=== PATIENT | male | born 1955 | race Caucasian/White ===

== ENCOUNTER → 2020-10-10 | Outpatient (CLI) | payer BC, SELFPAY ==
[2020-10-10 17:02] VITALS: BMI 27.3
== END | disposition home or self-care (01) ==
PROVIDERS: Visit Provider Physician Assistant Surgical
DX: U07.1 COVID-19 (principal)
CPT/HCPCS: 87635; U0003

== ENCOUNTER 2023-08-25 05:33 | Day surgery (SDC) | payer MEDICARE, OTHER, SELFPAY ==
[2023-07-25 11:13] LABS: Magnesium 1.9 mg/dL (1.6-2.6)
[2023-07-25 11:14] LABS: Hemoglobin A1c 4.9 % (3.8-5.6)
[2023-08-25] VITALS (7 sets, daily range): BP systolic 104–152; BP diastolic 66–89; PULSE 55–86; RESP 14–16; TEMP 35.3–36.6; O2SAT 96–100; BMI 31.3
[2023-08-25] MEDS: Magnesium 2 GM for ERAS IV (06:18)
[2023-08-25] MEDS: Gabapentin 600 MG Tablet PO (06:19)
[2023-08-25] MEDS: Acetaminophen 500 MG Tablet 1000 MG PO ×2 (06:19→13:30)
[2023-08-25] MEDS: Lactated Ringers 1,000 ML 15 ML IV (06:19)
--- NOTE | 2023-08-25 07:30 | FEM._PTH ---
PATIENT: ERICA MARKS LOC: [facility] U#:[id number] AGE/SX: 67/M ROOM: RE08/25/[address]: Dr. Leopoldo Hernández DO : 1955 BED: DIS: 08/25/2023 SPEC #: [id number] RECD: 08/25/23 11:05 STATUS: JOHN INDU #: [id number] ISIDORO: 08/25/23 07:[address]: Leopoldo Hernández DEPT: SURGICAL PATHOLOGY RECD BY: Lakisha Cosme ENTERED: 08/25/23 12:07 SP TYPE: FEM HEAD OTHR DR: No Primary Care Phys Tissues: Hip, NOS Procedures: Decalcification bone/plaque Surgery Specimen Level IV HEADER OPERATION: ERAS, total hip replacement, posterior PRE-OP DIAGNOSIS: Unilateral primary osteoarthritis right hip TISSUE SUBMITTED: Right femoral head MICROSCOPIC DIAGNOSIS Right femoral head, total hip replacement/resection: Femoral head with degenerative osteoarthritic changes. A piece of fibroadipose and reactive synovial tissue. HEATHER:gabriela 08/28/2023 MICROSCOPIC DESCRIPTION Slides are reviewed. GROSS DESCRIPTION Received is one container labeled with the patient's name and designated right femoral head. The specimen consists of a child femoral head with portion of femoral neck. The femoral head measures 5.0 x 5.0 x 5.5 cm and the femoral neck measures 1.0 cm in length. Also present on the top of femoral head is a piece of soft tissue measuring 2.0 x 0.5 x 0.5 cm. The articular surface displays prominent osteophyte formation, eburnation and bone erosion. [employer] And [employer] Colerer sections are submitted in two cassettes as follows: 1 - soft tissue, entirely submitted, 2 - femoral head after decalcification. / HEATHER:gabriela 08/25/2023 :5 [facility]: [id number], [id number]
[2023-08-25] MEDS: TXA 1000mg in NS100 100ml (IVPB at Incision) 660 MG IV (07:40)
[2023-08-25] MEDS: TXA 1000mg in NS100 100ml (IVPB at Closure) 660 MG IV (08:50)
[2023-08-25 08:52] LABS: Bedside Glucose 98 mg/dL (74-106)
[2023-08-25] MEDS: JPS (Morphine 10mg/ml) OPERA.SITE (08:52)
--- NOTE | 2023-08-25 08:53 | RAD_ITS ---
STUDY: X-RAY - PELVIS AND RIGHT HIP REASON FOR EXAM: Male, 67 years old. post op -- in PACU TECHNIQUE: 2 views of the pelvis and hip. COMPARISON: None. FINDINGS: Satisfactory appearance of recently positioned right hip arthroplasty. No dislocation. Otherwise unremarkable visualized pelvis and left hip. Electronically Signed: Jimmie Bowman MD at 23:00 EDT , RAD/Hip Min 2 Views (Portable) IMPRESSION: undefined
--- NOTE | 2023-08-25 09:07 | OP.PCM_ITS ---
Report of Operation Date of Procedure: 08/25/23 Pre-Operative Diagnosis: OA right hip Post-Operative Diagnosis: same Surgery/Procedure Performed:: right THR Description of Surgical Findings:: Report of Operation Date of Procedure: 08/25/2023 Pre-Operative Diagnosis: OA [ right ] hip Post-Operative Diagnosis: same Surgery/Procedure Performed: [right ] THR measurement operator: Isma Silvestre PA-C Type of Anesthesia: general after attempted spinal Anesthesiologist: Bayron Seth M.D. Specimen's removed: bone Estimated Blood Loss (mL): 75 cc Implants: [place] Accolade 2 size 6 stem, +0 neck length. 52 MM hemispherical cup with MDM liner, stainless steel on polyethylene Surgical Indications: Patient has severe end-stage osteoarthritic changes in the [right ] hip. They have failed conservative measures including activity modification, anti- inflammatories, use of assistive devices. This to the point where the pain affects their ability to enjoy life and complete activities of daily living without discomfort. Patient has elected to undergo the above procedure Procedure Description: The patient was greeted in the preoperative area the [right ] hip was marked with surgical marker preoperative antibiotics administered. The patient was then taken to or suite in stable condition. Preoperative tranexamic acid was also utilized. Once the patient was placed in the supine position on the operating room table and once adequate anesthesia was obtained they were then placed in the lateral decubitus position with the surgical hip facing the field. All bony prominences were well-padded. A commercial hip position was utilized. The appropriate extremity was then prepped and draped in usual sterile fashion. Ioban was placed on the skin. Surgical timeout was performed and surgery was commenced. A standard posterior approach to the hip was then performed. Incision was planned and carried out with a #10 blade s calpel. Dissection was then carried length of the incision to the IT band which was split proximally and distally. A Charnley retractor was then placed for soft tissue retraction exposing the piri formis. A standard posterior capsulotomy was performed. Severe eburnation of bone was noted and periarticular osteophytes were identified consistent with severe end-stage osteoarthritis. A femoral neck osteotomy guide was used to karthik the proximal femur. A femoral osteotomy was then created approximately 1 fingerbreadth above the lesser trochanter. This was measured and placed on the back table. Once this was complete acetabular retractors were placed anteriorly and posteriorly. Labrum was then removed from the acetabulum exposing the entire cup of the acetabulum. Sequential reaming was then commenced and the acetabulum was medialized and sequentially widened in order to accommodate appropriate size cup. The acetabular cup was then impacted into position to the appropriate depth referencing approximately [40 degrees ] anteversion and [40 degrees ]of inclination. Excellent purchase was obtained. An appropriate size MDM liner was then placed. Attention was then turned to the femoral preparation. The hip was placed in the 90/90 position and a lateralizing box osteotome was utilized. Femoral starting awl was used followed by sequential broaching to the appropriate size. Excellent purchase was obtained with the stem no stem subsidence and excellent rotational stability was confirmed. A calcar reamer was then used in the trial head neck was placed on the broach. The hip was then located and taken through full range of motion flexion internal and external rotation as well as extension. Excellent stability was noted no impingement was identified of the components and leg lengths appear to be appropriate. The hip was at this point dislocated and the trial femoral components were removed. The final femoral stem was then implanted and impacted to the appropriate depth. Again excellent purchase was obtained no stem subsidence or rotational instability was noted. The hip was once again trialed and confirmation of leg length and stability was performed. Soft tissue tension also appeared to be appropriate. At this point the hip was redislocated and the trunnion was cleaned and dried meticulously in the appropriate size MDM femoral head was placed on the clean dry trunnion using a 12/14 Smiley taper. The hip was once again relocated and again taken through full range of motion. I did inject a cocktail of postoperative pain medication in the deep and superficial tissues. Copious irrigation was performed. Anatomic closure of the piriformis tendon was performed through drill holes in the greater trochanter. A #1 Vicryl 0 Vicryl was utilized in subcutaneous tissue and surgical magno were placed in the skin. A well-padded nonadherent dressing was applied. Patient was taken to PACU in stable condition. No complications were identified. Will follow standard postop protocol for total hip arthroplasty. My registered dental assistant played a vital role in the procedure beginning with positioning, holding retraction of soft tissues, positioning the leg to optimize visualization during the procedure and assisting with wound closure. Post-op Plan: DVT ppx; ASA 81 mg BID, thigh high compression stockings Follow up: in office in 2 weeks for wound check PT: to start POD #0 at hospital, outpatient PT should be arranged. Preoperative antibiotic: Clindamycin 900 mg IV Leopoldo Hernández DO Surgeon: Leopoldo Hernández measurement operator: Isma Silvestre Type of Anesthesia: General Anesthesiologist: Bayron Briceño Estimated Blood Loss (mL): 75 cc Fluids Replaced: 1000 cc crystalloid Admit VTE Documentation VTE Present on Admission: No VTE Mechan Device Prophylaxis: SCD's and Thigh High ROSENDO Hose VTE Pharm Prophylaxis ordered?: Yes
[2023-08-25] MEDS: Lactated Ringers 1,000 ML 125 ML IV (10:04)
== END 2023-08-25 15:05 | disposition home or self-care (01) ==
LOC: SDC 05:33 → AC 05:33
PROVIDERS: Anesthesiology; Referring Provider Orthopaedic Surgery; Visit Provider Orthopaedic Surgery
PROC: 0SR90JZ Replacement of Right Hip Joint with Synthetic Substitute, Open Approach (ICD-10-PCS; CPT 27130; principal; 2023-08-25 07:05)
DX: M16.11 Unilateral primary osteoarthritis, right hip (principal); K50.90 Crohn's disease, unspecified, without complications; I10 Essential (primary) hypertension; E66.9 Obesity, unspecified; Z68.31 Body mass index [BMI] 31.0-31.9, adult; F32.A Depression, unspecified; E07.9 Disorder of thyroid, unspecified; Z79.899 Other long term (current) drug therapy
CPT/HCPCS: 27130; 01214; 36415; 73502; 82962; 83036; 83735; 87081; 88305; 88311; 93005; 97162; C1776; J7120; J2405